=== PATIENT | female | born 1985 | race African-American/Black ===

== ENCOUNTER 2023-11-29 04:04 | Emergency (ER) | payer MEDICAID, OTHER ==
[~2023-11-29] VITALS: Ht 170.2 cm; Wt 90.0 kg
[2023-11-29 04:07] VITALS: BP 188/117; PULSE 74; RESP 18; TEMP 98.2; O2SAT 100
[2023-11-29] MEDS ORDERED: SODIUM CHLORIDE 0.9% 1,000 ML IV ONE (04:15)
[2023-11-29] MEDS ORDERED: MECLIZINE 25MG TABLET PO ONE (04:15)
[2023-11-29] MEDS ORDERED: ONDANSETRON HCL 4MG/2ML INJ IV ONE (04:15)
[2023-11-29] MEDS ORDERED: ACETAMINOPHEN 1000MG/100ML 100 ML IV ONE (04:15)
== END 2023-11-29 04:21 | disposition left against medical advice (07) ==
LOC: ER 04:04
DX: R42 Dizziness and giddiness (principal); J45.909 Unspecified asthma, uncomplicated; Z91.048 Other nonmedicinal substance allergy status; Z00.00 Encounter for general adult medical examination without abnormal findings; Z53.29 Procedure and treatment not carried out because of patient's decision for other reasons
CPT/HCPCS: 99283; J7030; J0131

== ENCOUNTER 2024-10-02 16:39 | Emergency (ER) | payer MEDICAID, OTHER ==
[~2024-10-02] VITALS: Ht 157.5 cm; Wt 78.0 kg
[2024-10-02 16:49] VITALS: PULSE 102; RESP 8; O2SAT 99
[2024-10-02 16:56] VITALS: BP 157/98; TEMP 36.9; O2SAT 99
[2024-10-02] MEDS ORDERED: AMOX1TAB16 MT (17:51)
[2024-10-02] MEDS ORDERED: ACET-2708 MT (18:19)
[2024-10-02] MEDS ORDERED: LIDO-53 TP (18:19)
[2024-10-02] MEDS: LIDOCAINE 5% PATCH TOP SCH (18:49)
[2024-10-02] MEDS: ACETAMINOPHEN 500MG TABLET PO ONE (18:49)
== END 2024-10-02 18:52 | disposition home or self-care (01) ==
LOC: ER 16:39
DX: M25.512 Pain in left shoulder (principal); J39.8 Other specified diseases of upper respiratory tract; J45.909 Unspecified asthma, uncomplicated; Z98.890 Other specified postprocedural states; Z79.899 Other long term (current) drug therapy; W18.30XA Fall on same level, unspecified, initial encounter; Y93.89 Activity, other specified; Y92.89 Other specified places as the place of occurrence of the external cause; Y99.8 Other external cause status
CPT/HCPCS: 29240; 73030; 99283; A4565